=== PATIENT | female | born 1990 | race Caucasian/White ===

== ENCOUNTER 2017-04-30 20:14 | Emergency (ER) | payer OTHER ==
[2017-04-30] MEDS ORDERED: ZOLOFT100 M1 PO (20:44)
[2017-04-30] MEDS ORDERED: ADDERALL XR 2020 MG PO (20:44)
[2017-04-30] MEDS ORDERED: CRYSELLE-28 TA1 EACH PO (20:45)
--- NOTE | 2017-04-30 20:54 | ED GI/GU/ABDOMINAL COMPLAINT ---
History of Present Illness General Chief Complaint: Female Urogenital Problems Stated Complaint: PT HAS SOMETHING GROWING ON HER LABIA Source: patient Exam Limitations: no limitations Vital Signs & Intake/Output Vital Signs & Intake/Output Vital Signs Date Time Temp Pulse Resp B/P B/P Pulse O2 O2 Flow FiO2 Mean Ox Delivery Rate 04/307 100.0 110 16 168/98 98 Room Air 04/30 2019 98.2 108 20 163/102 Allergies Coded Allergies: No Known Allergies (04/30/17) Reconcile Medications Amoxicillin/Potassium Clav (Augmentin 875-125 Tablet) 875 MG-125 MG TABLET 1 TAB PO BID abscess Dextroamphetamine/Amphetamine (Adderall XR 20 MG Capsule) 20 MG CAP.ER.24H 1 CAP PO QAM ADHD (Reported) Norgestrel-Ethinyl Estradiol (Cryselle-28 Tablet) 0.3 MG-30 MCG TABLET 1 TAB PO DAILY CONTROL (Reported) Oxycodone HCl/Acetaminophen (Percocet 7.5-325 MG Tablet) 7.5 MG-325 MG TABLET 1 TAB PO TID pain Sertraline HCl (Zoloft) 100 MG TABLET 2 TAB PO DAILY MENTAL HEALTH (Reported) Sulfamethoxazole/Trimethoprim (Bactrim Ds Tablet) 800 MG-160 MG TABLET 1 TAB PO BID abscess Triage Note: PER PT HAS A LUMP IN LABIA SWOLLEN AND PAINFUL AFTER SHAVING X 2 DAYS AGO Triage Nurses Notes Reviewed? yes LMP (ages 10-50): now ? N Is pt currently ? No Onset: Abrupt Duration: day(s): (3), constant, continues in ED, getting worse Timing: single episode today Quality/Severity: moderate, sharpness Severity Numbers: 8 Location: vaginal (RT LABIA) Radiation: no radiation Activities at Onset: SHAVING Prior Abdominal Problems: none No Modifying Factors: none Modifying Factors: Worsens With: movement, palpation. HPI: 27-year-old female with past medical history of depression present complaining of redness pain and swelling on her right labia majora. Patient reports she she first noticed a pEA sized lesion on the right labia about 3 days ago. Since then and it has steadily grown in size. Patient reports that she had been shaving before the bump appeared. There has been no discharge, no fevers or vaginal discharge, no bleeding, no abdominal pain, back pain. Patient currently reports the pain as a 10 out of 10 located in her right labia and it does not radiate. She has not taken any medication for the pain. (KYUNG PLEITEZ PA-C) Past History Travel History Traveled to [place] past 21 day No Medical History Any Pertinent Medical History? see below for history Neurological: NONE EENT: NONE Cardiovascular: NONE Respiratory: NONE Gastrointestinal: NONE Hepatic: NONE Renal: NONE Musculoskeletal: NONE Psychiatric: depression Endocrine: NONE Surgical History Surgical History: none Psychosocial History What is your primary language Finnish Tobacco Use: Current Daily Use Daily Tobacco Use Amount/Type: => 5 Cigarettes daily Family History Hx Contributory? No (KYUNG PLEITEZ PA-C) Review of Systems Review of Systems Constitutional: Reports: no symptoms. EENTM: Reports: no symptoms. Respiratory: Reports: no symptoms. Cardiovascular: Reports: no symptoms. GI: Reports: no symptoms. Genitourinary: Reports: pain (labia). Musculoskeletal: Reports: no symptoms. Skin: Reports: no symptoms. Neurological/Psychological: Reports: no symptoms. Hematologic/Endocrine: Reports: no symptoms. Immunologic/Allergic: Reports: no symptoms. All Other Systems: Reviewed and Negative (KYUNG PLEITEZ PA-C) Physical Exam Physical Exam General Appearance: well developed/nourished, no apparent distress, alert, awake , anxious, mild distress Head: atraumatic, normal appearance Eyes: Bilateral: normal appearance, PERRL, EOMI, normal inspection. Ears, Nose, Throat, Mouth: hearing grossly normal, dental injury, moist mucous membrane, Tympanic normal Neck: normal inspection, supple, full range of motion, normal alignment Respiratory: normal breath sounds, chest non-tender, no respiratory distress, lungs clear Cardiovascular: regular rate/rhythm, normal peripheral pulses Peripheral Pulses: 2+ dorsalis pedis (R), 2+ dorsalis pedis (L) Gastrointestinal: normal bowel sounds, soft, non-tender, no organomegaly Pelvic: the rt labia majora is tender to palpation, swollen, erythematous and indurated. no discharge or focal fluctuant areas. no external lesions Back: normal inspection, normal range of motion Extremities: normal range of motion Neurologic/Psych: no motor/sensory deficits, awake, alert, oriented x 3, normal gait, normal mood/affect Skin: intact, normal color Core Measures ACS in differential dx? No Severe Sepsis Present: No Septic Shock Present: No (KYUNG PLEITEZ PA-C) Progress Differential Diagnosis: abscess, cellulitis, bartholins cyst, allergic reaction Plan of Care: Current Medications Sig/Tanner Start time Last Medication Dose Stop Time Status Admin Oxycodone/ 1 TAB ONCE ONE 04/30 2230 AC Acetaminophen 04/30 2231 (Percocet) Exam reveals a 3 cm diameter area of induration located on the right labia majora. There is surrounding erythema and soft tissue swelling. Patient requires incision and drainage. She was given a Percocet for pain. 10:26 PM I&D attempt was unsuccessful at removing any purulent discharge from the area. The right labia majora is very indurated without any focal fluctuant areas. Multiple incisions were made with an 11 blade and only bloody discharge without any pus was expressed. Pt was given another percoet for pain. Patient will be discharged home on augmentin and bactrim ds and instructed to apply warm compresses to the area multiple times per day in order to bring the area to a head. Percocet will be given for pain. She will return to the emergency department or follow-up with [facility] for reevaluation after applying warm compresses. Discussed situation with patient and she is in agreement with the plan. (KYUNG PLEITEZ PA-C) Initial ED EKG: none (KYUNG PLEITEZ PA-C) Departure Departure Disposition: HOME OR SELF CARE Condition: Stable Clinical Impression Primary Impression: Abscess of labia majora Referrals: PATIENT HAS NO PRIMARY CARE DR (PCP/Family) Additional Instructions: Rest, apply warm compresses to the affected area for 15-20 minutes every few hours. Take both antibiotics as directed for the full course and take a probiotic to place all the bacteria. Use ibuprofen 800 mg every 8 hours with food as needed for pain. Percocet can also be used every 4-6 hours needed for severe pain. Make a follow-up appointment with [facility] on Tuesday. Return to the emergency department sooner with any concerns. you did a really good job! im sorry for the pain! Please go over all results of today's visit with your primary care doctor. Contact your primary care doctor to let them know you were here in the emergency room. There may be nonspecific findings which may not be related to your visit today here in the emergency room but may require further evaluation and chronic monitoring by your primary care doctor. If you had a laceration today the chance of foreign body always remains. You should follow-up with your primary care doctor for recheck in 3-5 days for a wound check. If you had an x-ray done there is a chance that a fracture could have been missed on initial read and you should follow-up with your primary care doctor for repeat x-rays if symptoms persist. If your blood pressure was elevated here in the emergency room please have rechecked by her primary care doctor within the next 48 hours by your primary care doctor. If you were prescribed a narcotic here in the emergency room or any type of controlled substances you're not allowed to drive while taking this medication or operate any type of heavy machinery. Narcotics can make you feel lightheaded dizziness nausea and can cause constipation. You may need to sisal picker a stool softener. Thank you for choosing [facility] emergency room. Please return to the emergency room immediately if you have any other concerns worsening of symptoms. Departure Forms: Customer Survey General Discharge Information Prescriptions: Current Visit Scripts Amoxicillin/Potassium Clav (Augmentin 875-125 Tablet) 1 TAB PO BID #20 TAB Sulfamethoxazole/Trimethoprim (Bactrim Ds Tablet) 1 TAB PO BID #20 TAB Oxycodone HCl/Acetaminophen (Percocet 7.5-325 MG Tablet) 1 TAB PO TID #10 TAB (KYUNG PLEITEZ PA-C) PA/WELL TESTER Co-Sign Statement Statement: ED Attending supervision documentation- I saw and evaluated the patient. I have also reviewed all the pertinent lab results and diagnostic results. I agree with the findings and the plan of care as documented in the PA's/WELL TESTER's documentation. x I have reviewed the ED Record and agree with the PA's/WELL TESTER's documentation. [] Additions or exceptions (if any) to the PAs/WELL TESTER's note and plan are summarized below: [] (MEGAN PRUITT MD) Procedures Incision and Drainage Site: rt labia majora Blade Size: 11 I & D Procedure: Yes: betadine prep, sterile drapes applied, sterile dressing applied. No: wick placed. Progress: The labia and surrounding tissues were cleaned with Betadine. 5 mL of Lidocaine 1% without epi was administered for local pain control. An 11 blade was used to open the areas suspected to contain purulent to contain purulent material. 3 areas over the labia majora were opened. 18-gauge needle was also used for deeper exploration. Only blood was expressed. No pus. (MAIK BARBER,KYUNG)
[2017-04-30] MEDS ORDERED: AUGMENTIN 875-1 EACH PO (22:32)
[2017-04-30] MEDS ORDERED: BACTRIM DS TAB1 EACH PO (22:32)
[2017-04-30] MEDS ORDERED: PERCOCET 7.5-31 EACH PO (22:33)
[2017-04-30 22:57] VITALS: BP 168/98
== END 2017-04-30 22:50 ==
LOC: ERH 20:14
DX: N76.4 Abscess of vulva (principal)